=== PATIENT | male | born 1990 | race Caucasian/White ===

== ENCOUNTER 2017-04-12 01:20 | Emergency (ER) | payer OTHER ==
--- NOTE | 2017-04-12 03:28 | ED Physician Chart ---
ED Chief Complaint/HPI - Patient Information Date Seen:: 04/12/17 Time Seen:: 01:30 Chief Complaint:: Ok to book History of Present Illness:: 26 yo male was brought by police to ER for evaluation of okay to book. He received two taser barbs on his left flank. Allergies:: Allergies Allergy/AdvReac Type Severity Reaction Status Date / Time No Known Allergies Allergy Verified 04/12/17 01:29 ED Past Medical History - Past Medical History Past Medical History: Other (left sciatica) Social History: Non Smoker, No Alcohol, No Drug Use Surgical History: None Family Medical History - Family Member Mother Ethnicity: ED Assessment - Assessment Assessment/Comments:: Two taser barbs were removed from left flank without complication. The patient was okay to book ED Discharge Plan - Patient Disposition Admit/Discharge/Transfer: Detention/Long Term Instructions: Puncture Wound, [id number] Additional Instructions: follow up with your primary medical doctor AUDREY keep wound clean and dry
== END 2017-04-12 01:38 | disposition still patient (30) ==
LOC: ER 01:20
DX: S30.851A Superficial foreign body of abdominal wall, initial encounter (principal); X58.XXXA Exposure to other specified factors, initial encounter; Y93.89 Activity, other specified; Y92.89 Other specified places as the place of occurrence of the external cause; Y99.8 Other external cause status
CPT/HCPCS: Z7502